=== PATIENT | male | born 1950 ===

== ENCOUNTER 2023-11-24 15:36 | Inpatient (IN) | payer OTHER ==
[~2023-11-24] VITALS: Ht 180.3 cm; Wt 74.8 kg
[~2023-11-24 15:36] MED LIST: ALPRAZOLAM0.5 M3 PO; ARIPIPRAZOLE5 MG PO; ATIVAN0.5 MG PO; CIPROFLOXACIN500 M4 PO; ELIQUIS5 M1 PO; FLOMAX0.4 MG PO; HYDROXYZINE HCL25 MG PO; MIDODRINE HCL5 M1 PO; PROSCAR5 M1 PO; PROTONIX40 MG PO; REMERON SOLTAB45 MG PO; RISPERDAL0.5 MG PO
[2023-11-24 15:45] VITALS: BP 129/74
[2023-11-24 16:19] LABS: BASO % 0.4 % (0.0-1.0); EOS # 0.1 10*3/uL (0.0-0.4); EOS % 1.3 % (1.0-4.0); HEMATOCRIT 47.5 % (42.0-52.0); LYMPH # 1.3 10*3/uL (1.3-4.4); LYMPH % 27.2 % (27.0-41.0); MEAN CELL VOLUME 94.1 fl (80.0-94.0); MEAN CORPUSCULAR HGB 30.5 pg (27.0-31.0); MEAN CORPUSCULAR HGB CONC 32.4 g/dl (33.0-37.0); MEAN PLATELET VOLUME 10.4 fl (9.6-12.3); MONO # 0.6 10*3/uL (0.1-1.0); NEUT # 2.8 10*3/uL (2.3-7.9); NEUT % 57.9 % (47.0-73.0); PLATELET COUNT AUTOMATED 159 10*3/uL (130-400); RED BLOOD COUNT 5.05 10*6/uL (4.50-5.90); RED CELL DISTRI WIDTH 13.2 % (0-14.5); WHITE BLOOD COUNT 4.8 10*3/uL (4.8-10.8)
[2023-11-24 16:33] LABS: ACT PARTIAL THROMBO TIME 30.2 SECONDS (20.0-32.1)
[2023-11-24 16:43] LABS: ALKALINE PHOSPHATASE 70 U/L (46-116); BUN 26 mg/dl (9-23); CHLORIDE 104 mmol/L (98-107); LIPASE 38 U/L (12-53); POTASSIUM 4.6 mmol/L (3.4-5.1); SGPT/ALT 27 U/L (5-49); TOTAL PROTEIN 7.1 gm/dL (6.0-8.0)
[2023-11-24 18:00] LABS: BILIRUBIN Negative (Negative); BLOOD Negative (Negative); CLARITY Clear (Clear); COLOR Dark Yellow (Yellow); GLUCOSE Negative (Negative); KETONE 2+ (Negative); LEUKO ESTERASE Negative (Negative); NITRITE Negative (Negative); PH 5.5 (4.5-8.0); SPECIFIC GRAVITY 1.025 (1.001-1.030)
[2023-11-24 18:14] LABS: BACTERIA 1+; EPITHELIAL CELLS 0-2; MUCOUS 2+
[2023-11-24 18:56] LABS: URINE AMPHETAMINES Negative (1000ng/ml); URINE BARBITURATES Negative (200ng/ml); URINE BENZODIAZEPINES Positive (200ng/ml); URINE CANNABINOIDS (THC) Negative (50ng/ml); URINE COCAINE Negative (300ng/ml); URINE METHADONE Negative (300ng/ml); URINE OPIATES Negative (300ng/ml); URINE PHENCYCLIDINE Negative (25ng/ml)
[2023-11-24] MEDS ORDERED: AUVELITY ER 451 EACH PO (18:58)
[2023-11-24] MEDS ORDERED: XANAX1 MG PO (19:00)
[2023-11-24] MEDS ORDERED: XANAX0.5 MG PO (19:01)
[2023-11-24] MEDS ORDERED: REMERON15 M2 PO (19:03)
[2023-11-24 20:41] VITALS: BP 129/74; BP 144/81
[2023-11-24] MEDS ORDERED: ABILIFY15 MG PO (22:30)
[2023-11-24] MEDS ORDERED: LORazepam 1 MG TAB PO PRN (22:35)
[2023-11-24] MEDS ORDERED: Ziprasidone Mesylate 20 MG VIAL IM PRN (22:35)
[2023-11-24] MEDS ORDERED: ACETAMINOPHEN 325 MG TAB PO PRN (22:40)
[2023-11-24] MEDS ORDERED: MG-AL HYDROXIDE/SIMETICONE 30 ML UDC PO PRN (22:40)
[2023-11-24] MEDS ORDERED: Magnesium Hydroxide 30 ML UDC PO PRN (22:40)
[2023-11-24] MEDS ORDERED: Menthol/Zinc Oxide 4 GM THIN T PRN (22:50)
[2023-11-24] MEDS ORDERED: SODIUM CHLORIDE 0.9% 1,000 ML IV SCH (23:35)
[2023-11-25 06:26] LABS: BASO % 0.5 % (0.0-1.0); EOS # 0.1 10*3/uL (0.0-0.4); EOS % 2.1 % (1.0-4.0); HEMATOCRIT 43.6 % (42.0-52.0); LYMPH # 1.1 10*3/uL (1.3-4.4); LYMPH % 28.9 % (27.0-41.0); MEAN CELL VOLUME 92.2 fl (80.0-94.0); MEAN CORPUSCULAR HGB 30.9 pg (27.0-31.0); MEAN CORPUSCULAR HGB CONC 33.5 g/dl (33.0-37.0); MEAN PLATELET VOLUME 10.4 fl (9.6-12.3); MONO # 0.5 10*3/uL (0.1-1.0); MONO % 12.9 % (3.0-9.0); NEUT # 2.1 10*3/uL (2.3-7.9); NEUT % 55.6 % (47.0-73.0); PLATELET COUNT AUTOMATED 149 10*3/uL (130-400); RED BLOOD COUNT 4.73 10*6/uL (4.50-5.90); RED CELL DISTRI WIDTH 12.8 % (0-14.5); WHITE BLOOD COUNT 3.8 10*3/uL (4.8-10.8)
[2023-11-25 06:49] LABS: ALKALINE PHOSPHATASE 65 U/L (46-116); BUN 23 mg/dl (9-23); CHLORIDE 104 mmol/L (98-107); CHOLESTEROL 128 mg/dL (<200); LDL CHOLESTEROL 79 mg/dL (9-159); POTASSIUM 4.5 mmol/L (3.4-5.1); SGPT/ALT 22 U/L (5-49); TOTAL PROTEIN 6.3 gm/dL (6.0-8.0); TRIGLYCERIDES 71 mg/dl (<150)
[2023-11-25 06:59] LABS: VITAMIN D, 25-HYDROXY 48.1 ng/mL (30-100)
[2023-11-25] MEDS ORDERED: SODIUM CHLORIDE 0.9% 1,000 ML BAG IV ONE (07:30)
[2023-11-25 08:44] VITALS: BP 144/69
[2023-11-25] MEDS ORDERED: FINASTERIDE 5 MG TAB PO SCH (09:00)
[2023-11-25] MEDS ORDERED: APIXABAN 5 MG TAB PO SCH (09:00)
[2023-11-25] MEDS ORDERED: Tamsulosin Hydrochloride 0.4 MG CAP PO SCH (09:00)
[2023-11-25] MEDS ORDERED: Pantoprazole Sodium 40 MG TAB PO SCH (09:00)
[2023-11-25] MEDS ORDERED: ALPRAZolam 0.5 MG TAB PO SCH ×2 (10:00→22:00)
[2023-11-25 20:00] VITALS: BP 101/66
[2023-11-25] MEDS ORDERED: OLANZAPINE 2.5 MG TAB PO SCH (21:00)
[2023-11-25] MEDS ORDERED: MED. FROM HOME 1 EACH EA PO SCH (21:00)
[2023-11-25] MEDS ORDERED: Mirtazapine 15 MG TAB PO SCH (22:00)
[2023-11-26 08:18] VITALS: BP 130/69
[2023-11-26] MEDS ORDERED: Cyproheptadine Hydrochloride 4 MG TAB PO SCH (13:00)
[2023-11-26 20:00] VITALS: BP 116/78
[2023-11-27 07:36] VITALS: BP 119/71
[2023-11-27 20:00] VITALS: BP 133/88
[2023-11-27] MEDS ORDERED: OLANZAPINE 7.5 MG TAB PO SCH (21:00)
[2023-11-28 07:35] VITALS: BP 120/82
[2023-11-28 19:11] VITALS: BP 133/71
[2023-11-29 07:54] VITALS: BP 119/81
[2023-11-29] MEDS ORDERED: clonAZEPAM 0.5 MG TAB PO SCH (13:00)
[2023-11-29 18:02] LABS: BILIRUBIN Negative (Negative); BLOOD Negative (Negative); CLARITY Clear (Clear); COLOR Yellow (Yellow); GLUCOSE Negative (Negative); KETONE Trace (Negative); LEUKO ESTERASE Negative (Negative); NITRITE Negative (Negative); PH 5.5 (4.5-8.0)
[2023-11-29 18:20] LABS: BACTERIA TRACE; EPITHELIAL CELLS 0-2; WBC 0-2 wbc/hpf (0-5)
[2023-11-29 20:00] VITALS: BP 121/59
[2023-11-29] MEDS ORDERED: clonAZEPAM 1 MG TAB PO SCH (21:00)
[2023-11-30 07:43] VITALS: BP 163/45
[2023-11-30] MEDS ORDERED: LIDOCAINE 1 EA PATCH T SCH (09:24)
[2023-11-30 11:55] LABS: BASO % 0.4 % (0.0-1.0); EOS # 0.1 10*3/uL (0.0-0.4); EOS % 1.7 % (1.0-4.0); HEMATOCRIT 46.1 % (42.0-52.0); LYMPH # 1.4 10*3/uL (1.3-4.4); LYMPH % 29.4 % (27.0-41.0); MEAN CELL VOLUME 94.9 fl (80.0-94.0); MEAN CORPUSCULAR HGB 30.9 pg (27.0-31.0); MEAN CORPUSCULAR HGB CONC 32.5 g/dl (33.0-37.0); MEAN PLATELET VOLUME 10.3 fl (9.6-12.3); MONO # 0.5 10*3/uL (0.1-1.0); MONO % 10.2 % (3.0-9.0); NEUT # 2.8 10*3/uL (2.3-7.9); NEUT % 58.3 % (47.0-73.0); PLATELET COUNT AUTOMATED 162 10*3/uL (130-400); RED BLOOD COUNT 4.86 10*6/uL (4.50-5.90); WHITE BLOOD COUNT 4.8 10*3/uL (4.8-10.8)
[2023-11-30 12:18] LABS: ALKALINE PHOSPHATASE 67 U/L (46-116); BUN 16 mg/dl (9-23); CHLORIDE 108 mmol/L (98-107); POTASSIUM 4.3 mmol/L (3.4-5.1); SGPT/ALT 21 U/L (5-49); TOTAL PROTEIN 6.6 gm/dL (6.0-8.0)
[2023-11-30 19:00] VITALS: BP 119/73
[2023-11-30] MEDS ORDERED: QUETIAPINE FUMARATE 50 MG TAB PO SCH (21:00)
[2023-12-01 07:37] VITALS: BP 141/78
[2023-12-01] MEDS ORDERED: QUETIAPINE FUMARATE 25 MG TAB PO SCH (14:00)
[2023-12-01 20:00] VITALS: BP 116/74
[2023-12-01] MEDS ORDERED: QUETIAPINE FUMARATE 50 MG TAB PO SCH (21:00)
[2023-12-02 08:00] VITALS: BP 100/71; BP 103/73
[2023-12-02] MEDS ORDERED: QUETIAPINE FUMARATE 25 MG TAB PO SCH (08:00)
[2023-12-02 20:00] VITALS: BP 115/65
[2023-12-03 07:40] VITALS: BP 134/83
[2023-12-03] MEDS ORDERED: QUETIAPINE FUMA50 M1 PO (09:19)
[2023-12-03] MEDS ORDERED: CLONAZEPAM0.5 M2 PO (09:19)
[2023-12-03] MEDS ORDERED: FLUVOXAMINE50 MG PO ×2 (09:19)
[2023-12-03] MEDS ORDERED: CLONAZEPAM1 MG PO (09:19)
[2023-12-03] MEDS ORDERED: CYPROHEPTADINE H4 M1 PO (09:19)
[2023-12-03] MEDS ORDERED: QUETIAPINE FUMA25 MG PO (09:19)
== END 2023-12-03 12:47 | disposition home or self-care (01) | DRG 885 ==
LOC: ED 15:36 → 3N 20:15
PROVIDERS: Emergency Medicine; Nurse Practitioner; Student in an Organized Health Care Education/Training Program; ADMIT Psychiatry & Neurology Psychiatry; ATTEND Psychiatry & Neurology Psychiatry
DX: F33.2 Major depressive disorder, recurrent severe without psychotic features (principal); N17.0 Acute kidney failure with tubular necrosis; F34.1 Dysthymic disorder; F41.1 Generalized anxiety disorder; F22 Delusional disorders; I10 Essential (primary) hypertension; R73.9 Hyperglycemia, unspecified; Z90.49 Acquired absence of other specified parts of digestive tract; Z87.891 Personal history of nicotine dependence; Z88.0 Allergy status to penicillin; Z79.899 Other long term (current) drug therapy